=== PATIENT | male | born 1935 | race Caucasian/White ===

== ENCOUNTER → 2021-04-15 09:48 | Outpatient (BNVA) | payer MEDICARE, SELFPAY | PROVIDERS: Family Provider Family Medicine; PCP Family Medicine; Visit Provider Internal Medicine | DX: Z01.812 Encounter for preprocedural laboratory examination (principal); Z20.822 Contact with and (suspected) exposure to COVID-19; R13.10 Dysphagia, unspecified | CPT/HCPCS: 87635 ==

== ENCOUNTER 2021-04-18 06:05 | Day surgery (SDC) | payer MEDICARE, BC, SELFPAY ==
[2021-04-17 10:09] VITALS: BMI 25.8
[2021-04-18 06:30] VITALS: BP 136/77; PULSE 82; RESP 18; TEMP 36.6; O2SAT 100
--- NOTE | 2021-04-18 06:43 | ANES.PREANE2 ---
Pre-Anesthetic Assessment Pre-Anesthetic Assessment: Height/Weight: Height 1.68 m Weight 72.575 kg Temp Pulse Resp BP Pulse Ox 97.9 F 82 18 136/77 100 04/18/21 06:30 04/18/21 06:30 04/18/21 06:30 04/18/21 06:30 04/18/21 06:30 Preop Diagnosis: dysphagia Proposed Procedure: Operation Date: 04/18/21 07:00 Proposed Procedures p EGD Dilation W/ Bougie [id number] R13.10(Not Applicable) - Mayito Pedersen MD s Colonoscopy(Not Applicable) - Mayito Pedersen MD Was Beta Candace taken within 24 hours: Yes Was Clonidine taken within 24 hours: N/A Last intake: Intake Last Liquid Date 04/17/21 Last Liquid Time 19:30 Last Solid Date 04/17/21 Last Solid Time 09:30 Social: Social History: No alcohol and No tobacco Exam: Pre-Anes Outpt Exam: alert, oriented x 3 and regular rate & rhythm Airway: Submandibular: WNL Cervical ROM: WNL MP: 1 Dentition: False History/ROS: No significant history except as noted Pulmonary: Pulmonary: DIANA and SOB CV/HEM: CV/HEM: LA (stents placed 2008) : : None reported Hepatic: Hepatic: None reported GI: GI: None reported Metabolic: Metabolic: None reported Musc/skel: Musc/skel: None reported Neuropsych: Neuropsych: None reported Anesthetic Plan: ASA status: 3 Anesthesia: Anesthesia Evaluation and MAC Risk of > 500 ml blood loss (7ml/kg in children): No PFSH Anesthesia PFSH: Social History Smoking and tobacco status: never smoked Data Anesthesia Cardiac Studies: No Data to Display
[2021-04-18] MEDS: sodium chloride 0.9% 1,000 ML 30 ML IV (06:45)
--- NOTE | 2021-04-18 07:07 | P.HP_ITS ---
Same Day Surgery H&P Indication for Procedure/HPI DATE OF PROCEDURE: April 18, 2021 CHIEF COMPLAINT/INDICATIONFOR SURGICAL PROCEDURE: Anemia and dysphagia PREOP DIAGNOSIS: dysphagia PLANNED PROCEDRUE: Operation Date: 04/18/21 07:00 Proposed Procedures p EGD Dilation W/ Bougie [id number] R13.10(Not Applicable) - Mayito Pedersen MD s Colonoscopy(Not Applicable) - Mayito Pedersen MD Medications/Allergies* Home Medications Medication Instructions Recorded Confirmed Type aspirin 81 mg tablet,delayed 81 mg PO DAILY 03/31/21 04/17/21 History release atorvastatin 20 mg tablet 20 mg PO DAILY 03/31/21 04/17/21 History clopidogrel 75 mg tablet 75 mg PO DAILY 03/31/21 04/17/21 History cyanocobalamin (vitamin B-12) 1,000 mcg IM .monthly ea 03/31/21 04/17/21 History 1,000 mcg/mL injection kit mirabegron 50 mg tablet,extended 50 mg PO DAILY 03/31/21 04/17/21 History release 24 hr metoprolol tartrate 25 mg PO BID 04/17/21 04/17/21 History Allergies/Adverse Reactions Allergy/AdvReac Type Severity Reaction Status Date / Time No Known Allergies Allergy Verified 04/15/21 08:56 Current Medications: Generic Name Dose Route Start Last Admin Trade Name Annmarie PRN Reason Stop Dose Admin Sodium Chloride 1,000 mls @ 30 mls/hr 04/18/21 06:15 04/18/21 06:45 Sodium Chloride 0.9% IV 04/19/21 06:14 30 mls/hr .Q24H VERNON Administration Pertinent History/Comorbid Conditions* Social History Smoking and tobacco status: never smoked Pertinent Exam Findings alert, oriented x 3, clear to auscultation bilaterally, regular rate & rhythm, operative site marked and procedure specific exam findings Recommendations Surgery/Procedure today Coding Level of Care Code 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
[2021-04-18 07:35] VITALS: BP 90/60; PULSE 75; RESP 16; TEMP 36.1; O2SAT 98
[2021-04-18 07:54] VITALS: BP 116/65; PULSE 63; RESP 16; O2SAT 98
--- NOTE | 2021-04-18 08:19 | PC.NURSE ---
Paper script given to pt and . Other rx electronically sent to pharmacy. Given written materials on both new rx. Verbalized understanding. Pt and given instruction on follow up appointment w/Dr. Pedersen verbally and per written packet.
--- NOTE | 2021-04-18 12:30 | ANE.PACU2 ---
Inpatient post-anesthesia follow up: Airway intact: Yes Vital signs: Temperature 97 F Pulse Rate 63 Respiratory Rate 16 Blood Pressure 116/65 Pulse Oximetry 98 Oxygen Delivery Me thod Room Air Oxygen Flow Rate Fraction of Inspir ed Oxygen Hydration adequate: Yes Nausea and vomiting: No Pain level: 1 Mental status: Baseline
[2021-04-21 09:44] LABS: H. Pylori / CLO Test Positive
== END 2021-04-18 08:28 | disposition home or self-care (01) ==
PROVIDERS: PCP Family Medicine; Visit Provider Internal Medicine
PROC: 0DJD8ZZ Inspection of Lower Intestinal Tract, Via Natural or Artificial Opening Endoscopic (ICD-10-PCS; CPT 45378; 2021-04-18 07:00)
PROC: 0DJ08ZZ Inspection of Upper Intestinal Tract, Via Natural or Artificial Opening Endoscopic (ICD-10-PCS; CPT 43235; 2021-04-18 07:00)
DX: D50.9 Iron deficiency anemia, unspecified (principal); R13.10 Dysphagia, unspecified; D12.4 Benign neoplasm of descending colon; K57.30 Diverticulosis of large intestine without perforation or abscess without bleeding; K20.90 Esophagitis, unspecified without bleeding; K25.9 Gastric ulcer, unspecified as acute or chronic, without hemorrhage or perforation; Z79.82 Long term (current) use of aspirin; Z79.02 Long term (current) use of antithrombotics/antiplatelets
CPT/HCPCS: 43239; 45385; 87077; 88305; 96360; J2704; J7030